=== PATIENT | female | born 1950 | race Caucasian/White ===

== ENCOUNTER 2020-03-08 10:46 | Emergency (ER) | payer MEDICARE, OTHER, SELFPAY ==
[2020-03-08 10:47] VITALS: BP 177/39; PULSE 84; RESP 16; TEMP 36.7; O2SAT 98; BMI 35.5
--- NOTE | 2020-03-08 11:07 | EKG12_ITS ---
Test Reason : DYSRHYTHMIA Blood Pressure : / mmHG Vent. Rate : 079 BPM Atrial Rate : 079 BPM P-R Int : 168 ms QRS Dur : 066 ms QT Int : 374 ms P-R-T Axes : 039 006 007 degrees QTc Int : 428 ms Normal sinus rhythm Septal infarct , age undetermined Abnormal ECG Confirmed by DEBRA AKHTAR, [place] ([id number]), pictures editor MILO ZAVALA ([id number]) on 03/09/2020 1:12:17 PM Referred By: GARRISON Confirmed By:KY RICHARDSON MD
[2020-03-08] MEDS: Ibuprofen 600 MG Tablet PO (11:11)
--- NOTE | 2020-03-08 11:26 | ED.VIS.UPPEX ---
History of Present Illness Chief Complaint: Upper Extremity Injury Informant: Patient Occurred: Yesterday Onset: Yesterday Context: Gradual Onset Timing: Continuous Quality of Pain: Sharp Associated Symptoms: Weakness - Left hand secondary to pain. Negative for: Parasthesia Narrative: Patient is a 69-year-old female with history of heart issues presenting for evaluation of left arm pain. Patient has remote injury of a traumatic fracture and surgery when she was 21 years old in this arm. She states since yesterday she has had increased pain with range of motion. She has the pain is worse when she tries to use her arms to help her self get out of bed or move around. Also worse when she tries to reach over her head. The pain does not radiate. She states it feels like someone is trying to cut off her arm in the middle. She notes that she does not have weakness but she does have difficulty gripping things because it hurts so much. Patient denies associated chest pain, shortness of breath or nausea. She called her PCP who recommend she come to the emergency room to be evaluated further. She denies associated numbness or tingling. Past Medical History - Allergies and Home Meds Allergies/Adverse Reactions: Allergies No Known Allergies Allergy (Verified 03/08/20 10:47) Primary Care Physician: Michael Falk NP-C [Primary Care Provider] - Past Medical History: - - Hypertension, hyperlipidemia Surgical History: - - ORIF?left humerus Smoking Status: Never smoker Review of Systems General: Denies: Chills, Fever, Sweats Eyes: Denies: Visual changes - bilaterally, Diplopia ENT: Denies: Rhinorrhea, Sore throat Cardiovascular: Denies: Chest pain, Palpitations Respiratory: Denies: Dyspnea, Cough, Dyspnea on exertion Gastrointestinal: Denies: Abdominal pain, Nausea, Vomiting, Diarrhea, Melena, Hematochezia Genitourinary: Denies: Dysuria, Hematuria, Frequency Musculoskeletal: Reports: Extremity Pain - Left arm. Denies: Back pain Skin: Denies: Rash, Wounds Neurological: Denies: Headache, Weakness, Numbness Physical Exam Vital Signs/Narrative: Vital Signs Temp Pulse Resp BP Pulse Ox 03/08/20 10:47 98.1 F 84 16 177/39 H 98 Inital Vital Signs reviewed: Yes Right Shoulder: Negative for: Deformity, Limited ROM Left Shoulder: Limited ROM - Secondary to pain, - - No pinpoint area of tenderness. Negative for: Deformity, Edema Left Humerus: Deformity - From prior injury, - - Tenderness to palpation of the midshaft, it is exacerbated by active extension of the arm. Less so with active flexion. Negative for: Edema, Limited ROM Left Elbow: Negative for: Deformity, Edema, Limited ROM Left Forearm: Negative for: Deformity, Edema, Limited ROM Left Hand: - - Normal trimmer operator strength. Negative for: Deformity, Edema, Limited ROM General: Well nourished, Well developed Head: Normocephalic, Atraumatic Eyes: Perrl, EOMI ENT: No Trauma, Moist Mucous Membranes Neck: Nontender, Full ROM Cardiovascular: Regular rate, Regular rhythm, No murmurs Respiratory: No distress, CTA bilaterally, Chest nontender Abdomen: Soft, Nontender, Nondistended, Normal bowel sounds Back: Nontender Skin: Normal color, No rash Neurological: Alert, Oriented x3, Cranial nerves II-XII grossly intact, Normal Strength, Normal Sensation Psychological: Normal affect Diagnostic/Tx/Re-eval Clinical Impression(s) from Imaging Studies Humerus X-Ray 03/08/20 11:31 IMPRESSION: Calcific tendinitis of the left shoulder. Prior ORIF of the mid left humerus. Electronically Signed: Moe Destiny, at 12:00 EDT , Service support , - Rhythm Strip Rhythm Strip: Sinus Rhythm Rate: 79 Ectopy: None - EKG Initial EKG Interpretation: Sinus Rhythm, - - Normal sinus rhythm at a rate of 79 Normal intervals Normal axis Normal ST segments - Medical Decision Making For atraumatic left arm pain. The pain seems very muscle skeletal. EKG is obtained because patient's age, gender and cardiac history. It is normal. I do not think this is referred cardiac pain or angina. X-ray obtained does not show any displacement of her hardware from her prior surgery. Does show calcific tendinitis. Patient does have a pain with range of motion of her bicep which is likely the cause of her pain. She replaced on NSAID and steroid therapy. She has a follow-up appoint with her PCP next week. Patient is given Motrin in the emergency room. Feels that her left arm is weak with trimmer operator, I think is more secondary to pain. She is a normal neurologic exam and I do not think this is a central neurologic process. Patient is counseled on signs and symptoms requiring return to the emergency room. Patient verbalizes agreement and understand this plan. Patient discharged home in stable and improved condition. ED Disposition - Plan for ED Patient: Disposition: Home or Assisted Living Diagnosis: Left shoulder pain, Calcific tendinitis of left shoulder Instructions: ED Tendinitis Calcific Prescriptions: Prednisone [Deltasone] 40 mg PO DAILY #10 tab Transmission Status: Received by [id number] Ibuprofen [Motrin] 400 mg PO Q6H PRN PRN #20 tab PRN Reason: Pain Score 1-10/10 Transmission Status: Received by [id number] Referrals: Michael Falk NP-C [Primary Care Provider] - Additional Instructions: Ice the area of pain. Do range of motion with your shoulder.
--- NOTE | 2020-03-08 11:31 | RAD_ITS ---
STUDY: X-RAY - LEFT HUMERUS REASON FOR EXAM: Female, 69 years old. Old injury, LEFT ARM PAIN SINCE THIS AM, no new injury TECHNIQUE: AP and lateral view(s) of the humerus. COMPARISON: None. FINDINGS: The patient is status post ORIF of the mid shaft of the left humerus. There is no demonstrated fracture or osseous destructive process. Calcific tendinitis of the left shoulder. There is no demonstrated soft tissue abnormality. RAD/Humerus min 2 Views IMPRESSION: Calcific tendinitis of the left shoulder. Prior ORIF of the mid left humerus. Electronically Signed: Moe Dixon, at 12:00 EDT , Service support ,
== END 2020-03-08 12:58 | disposition home or self-care (01) ==
PROVIDERS: Emergency Provider Emergency Medicine; PCP Nurse Practitioner Primary Care
DX: M75.32 Calcific tendinitis of left shoulder (principal); M25.512 Pain in left shoulder; E78.5 Hyperlipidemia, unspecified; I10 Essential (primary) hypertension
CPT/HCPCS: 73060; 93005; 99283